=== PATIENT | female | born 1995 | race Caucasian/White ===

== ENCOUNTER 2022-03-04 16:26 | Emergency (ER) | payer BC, SELFPAY ==
[2022-03-04 16:39] VITALS: BP 136/91; PULSE 81; RESP 18; TEMP 36.7; O2SAT 100
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
--- NOTE | 2022-03-04 17:59 | DI.RAD_ITS ---
Exam(s) XR TIB/FIB LT EXAM: XR TIB/FIB LT CLINICAL HISTORY: L leg pain swelling TECHNIQUE: COMPARISON: No exams were available for comparison FINDINGS: Three views were obtained. No bony or soft tissue abnormality seen. IMPRESSION: RADIATION DOSE DELIVERED: Total DLP
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
--- NOTE | 2022-03-06 07:19 | NUR.NOTE ---
Nursing Note: [facility] called asking about outpt order for US. I found the order and refaxed it to [facility]. Kathy Mcgee
== END 2022-03-04 18:14 | disposition home or self-care (01) ==
PROVIDERS: Emergency Provider Emergency Medicine
DX: S80.12XA Contusion of left lower leg, initial encounter (principal); V29.9XXA Motorcycle rider (driver) (passenger) injured in unspecified traffic accident, initial encounter
CPT/HCPCS: 81025; 99283; 73590

== ENCOUNTER 2022-03-07 15:03 | Emergency (ER) | payer BC, SELFPAY ==
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
[2022-03-07 15:14] VITALS: BP 136/88; PULSE 70; RESP 16; TEMP 36.7; O2SAT 100
--- NOTE | 2022-03-07 15:22 | NUR.NOTE ---
Referral [facility] next week. Referral given to Care management to establish care, routine follow up; needs PCP. Kathy Mcgee
== END 2022-03-07 15:33 | disposition home or self-care (01) ==
PROVIDERS: Emergency Provider Emergency Medicine
DX: S80.12XA Contusion of left lower leg, initial encounter (principal); X58.XXXA Exposure to other specified factors, initial encounter

== ENCOUNTER 2022-03-14 13:59 | Outpatient (REF) | payer BC, SELFPAY ==
[2022-03-15 07:13] LABS: Source Nasal/Nares
[2022-03-15 08:06] LABS: COVID-19 PCR POSITIVE (Negative)
== END 2022-03-14 14:00 | disposition home or self-care (01) ==
LOC: LBN 13:59
PROVIDERS: PCP Nurse Practitioner Family; Visit Provider Surgery
DX: Z20.822 Contact with and (suspected) exposure to COVID-19 (principal); Z01.818 Encounter for other preprocedural examination
CPT/HCPCS: 87635

== ENCOUNTER 2022-03-15 10:20 | Day surgery (SDC) | payer BC, SELFPAY ==
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
--- NOTE | 2022-03-15 06:56 | W.PM.DSUDISC ---
Discharge Plan Disposition Patient Disposition: HOME Condition: Good Discharge Details Reason For Visit: LLE HEMATOMA Attending Provider: Regina Birmingham Primary Care Provider: Ophelia Doyle Home Meds and New Rx's Prescriptions: Continued Qsymia 7.5-46 mg capsule, ER multiphase 24 hr 1 cap PO DAILY Allergy Relief (cetirizine) 10 mg capsule 20 mg PO DAILY PRN albuterol sulfate 8.5 GM HFA aerosol inhaler 2 puff Inhalation Q4H PRN Qty: 1 Discharge Instructions Additional Instructions: Activity at Home after surgery: 1. As tolerated. Elevate your leg as much as possible over the next week Diet, Nutrition, & wound healin. As tolerated Pain Medications: 1. Tylenol 650mg every 6 hours as needed and Ibuprofen 600 mg every 6 hours as needed. You may alternate between the 2 medications every 3 hours 2. If a narcotic has been prescribed take as directed only for breakthrough pain For Constipation: 1. Take Milk of Magnesia or MiraLax as needed for constipation Other: 1. You may shower daily. Do not scrub the incisions 2. Do not soak the incisions for 1 week 3. You may alternate ice and heat as needed for pain and swelling Wound Care: 1. The dressing will be changed in the office. If the pad is full of fluid before your appointment call us. If it fills over the weekend then remove the dressing and apply the mepilex dressing we gave you. Please call our office if you develop: 1. Fevers >101.5 2. Nausea or Vomiting 3. Worsening pain 4. Redness and thick discharge from the wounds If after hours please call the Hospital at and ask to speak to the on-call surgeon Referrals: Regina Birmingham MD [ [facility] STAFF PHYSICIAN] - 03/21/22 2:00 pm Activity:: Activity as Tolerated Diet:: As Tolerated Discharge Orders Discharge Orders: Discharge Order (Routine); Ordered 03/15/22 Ordered By: Regina Birmingham Other Ambulatory Orders: COVID-19 PCR Routine ([facility]) (Routine) Timeframe: 10 Day Facility: [facility] - Location: Laboratory Nonpatient Ordered By: Regina Birmingham
[2022-03-15 10:45] VITALS: BP 129/67; PULSE 61; RESP 16; TEMP 36.4; O2SAT 100
[2022-03-15] MEDS: Lactated Ringers 1,000 ML 80 ML IV (10:55)
[2022-03-15] MEDS: Gabapentin 300 MG CAP PO (10:59)
[2022-03-15] MEDS: Celecoxib 200 MG CAP PO (10:59)
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
[2022-03-15] MEDS: Acetaminophen 500 MG TAB 1000 MG PO (11:00)
[2022-03-15 11:06] VITALS: BMI 30.2
[2022-03-15] MEDS: ceFAZolin 2 GM/50 ML BAG IVPB (11:31)
[2022-03-15 11:53] VITALS: BP 120/79; PULSE 62; RESP 16; TEMP 36.4; O2SAT 97
[2022-03-15] MEDS: traMADol 50 MG TAB PO (12:08)
[2022-03-15 12:15] VITALS: BP 122/95; PULSE 65; RESP 15; TEMP 36.4; O2SAT 97
--- NOTE | 2022-03-15 12:38 | W.ANESPOSTOP ---
Postoperative Evaluation Date, Time and Location Date Performed: 03/15/22 Time Performed: 12:34 Patient Location: Day Surgery Unit Vital Signs Most Recent Imported Vital Signs: Most Recent Vital Signs Temp Pulse Resp BP Pulse Ox 36.4 C L 65 15 122/95 H 97 03/15/22 12:15 03/15/22 12:15 03/15/22 12:15 03/15/22 12:15 03/15/22 12:15 Pain Score Most Recent Pain Score: Most Recent Pain Score Pain Level 8 03/15/22 12:15 Assessment Mental Status: Awake (Alert & Oriented to Patient Baseline) Airway and Respiratory Function: Patent airway with normal (patient baseline) respiratory exam Cardiovascular Function: Hemodynamically Stable Hydration Status: Adequately Hydrated Nausea & Vomiting: No Nausea or Vomiting Pain: Pain is tolerable per patient (Pain improved, feels like stinging only now. ) Peripheral Nerve Block: Patient did not receive a nerve block
[2022-03-15 12:48] VITALS: BP 121/84; PULSE 60; RESP 16; TEMP 36.3; O2SAT 100
== END 2022-03-15 10:21 | disposition home or self-care (01) ==
PROVIDERS: PCP Nurse Practitioner Family; Visit Provider Surgery
PROC: (CPT 10140; principal; 2022-03-15 11:30)
DX: S80.12XA Contusion of left lower leg, initial encounter (principal); L03.116 Cellulitis of left lower limb; J45.990 Exercise induced bronchospasm; V86.56XA Driver of dirt bike or motor/cross bike injured in nontraffic accident, initial encounter
CPT/HCPCS: 10140; 81025; 87077; 87635; 87070; 87075; 87186; 87205; J0690; J1100; J1885; J2405

== ENCOUNTER 2023-05-09 13:52 | Outpatient (REF) | payer BC, SELFPAY ==
--- NOTE | 2023-05-09 13:00 | PAPFT_PTH ---
PATIENT: Conrad Mendoza LOC: [facility] U#:[id number] AGE/SX: 27/F ROOM: RE05/09/[address]: Rosa Cuevas : 1995 BED: DIS: 05/09/2023 SPEC #: [id number] RECD: 05/09/23 17:46 STATUS: RESHMA TRIPP #: [id number] NEGRO: 05/09/23 13:[address]: Rosa Cuevas DEPT: [facility] Cytology RECD BY: Fanny Pineda ENTERED: 05/09/23 17:52 SP TYPE: PAPFT OTHR DR: Ophelia Doyle Tissues: 1 - CX/ENDOCX FOR PAP SMEARS Procedures: PAP THIN PREP/[facility] Screening Comments: [id number]
[2023-05-10 13:37] LABS: Chlamydia Result Negative (Negative); GC Result Negative (Negative)
== END 2023-05-09 13:53 | disposition home or self-care (01) ==
LOC: LBN 13:52
PROVIDERS: PCP Nurse Practitioner Family; Visit Provider Obstetrics & Gynecology Gynecology
DX: N90.89 Other specified noninflammatory disorders of vulva and perineum (principal); Z34.01 Encounter for supervision of normal first pregnancy, first trimester
CPT/HCPCS: 87491; 87591; 88142

== ENCOUNTER 2023-05-21 04:34 | Outpatient (CLI) | payer BC, SELFPAY ==
[2023-05-21 15:37] LABS: Panorama Kit Sent via Fed Ex
[2023-05-21 15:44] LABS: Abs Immature Grans 0.04 10^3/uL (0.0-0.06); Absolute Basophil Count 0.03 10^3/uL (0.0-0.2); Absolute Eosinophil Count 0.07 10^3/uL (0.0-0.7); Absolute Lymphocyte Count 1.88 10^3/uL (1.2-3.4); Absolute Monocyte Count 0.72 10^3/uL (0.1-0.8); Absolute Neutrophil Count 6.95 10^3/uL (1.2-6.7); Basophils % 0.3; Eosinophils % 0.7; Glucose,1 Hr (Glucola) 77 mg/dL (80-140); HCT 40.3 % (36.0-46.0); HGB 13.2 g/dL (11.2-15.7); Immature Grans % 0.4; Lymphocytes % 19.4; MCH 29.4 pg (27.0-33.0); MCHC 32.8 % (32.0-36.0); MCV 90 fL (80-95); MPV 9.4 fL (8.0-11.0); Monocytes % 7.4; Neutrophils % 71.8; Platelet Count 285 10^3/uL (130-400); RBC 4.49 10^6/uL (3.93-5.22); RDW 12.4 % (11.7-14.6); RDW-SD 40.6 fL; WBC 9.69 10^3/uL (4.4-10.8)
[2023-05-22 09:18] LABS: Hepatitis B Surface Ag Negative (Negative)
[2023-05-22 09:49] LABS: Hepatitis C Ab w Rflx HCV PCR Negative (Negative)
[2023-05-22 10:00] LABS: HIV-1/2 Ag & Ab Screen Negative (Negative)
[2023-05-22 10:56] LABS: Varicella IgG Antibody Positive (See Note)
[2023-05-22 11:01] LABS: Rubella IgG Ab (UVM) Positive (See Note)
[2023-05-23 15:18] LABS: Syphilis IgG w/Reflex Nonreactive (Nonreactive)
[2023-05-23 15:54] LABS: Specimen WB Whole Blood
[2023-06-02 14:34] LABS: Result Summary NEGATIVE; Specimen WB Whole Blood
== END 2023-05-21 04:35 | disposition home or self-care (01) ==
LOC: LBO 04:37
PROVIDERS: Advanced Practice Midwife; PCP Nurse Practitioner Family; Visit Provider Advanced Practice Midwife
DX: Z34.91 Encounter for supervision of normal pregnancy, unspecified, first trimester (principal); Z3A.12 12 weeks gestation of pregnancy; Z36.89 Encounter for other specified antenatal screening
CPT/HCPCS: 36415; 81220; 81222; 81329; 82950; 86787; 86803; 86850; 86900; 86901; 87340; 87389; 85025; 86762; 86780

== ENCOUNTER 2023-05-21 13:35 | Outpatient (REF) | payer BC, SELFPAY ==
[2023-05-21 15:44] LABS: *AMPHETAMINES SCREEN URINE Negative (Negative); *BARBITURATES SCREEN URINE Negative (Negative); *BENZODIAZEPINES SCREEN URINE Negative (Negative); Cannabinoids THC Negative (Negative); Cocaine Screen,Urine Negative (Negative); METHADONE URINE SCREEN Negative (Negative); OPIATES URINE SCREEN Negative (Negative)
[2023-05-21 15:45] LABS: Tricyclic Antidepressants Negative (Negative)
[2023-05-25 22:20] LABS: Buprenorphine Negative ng/mL (Cutoff: 5.0); Norbuprenorphine Negative ng/mL (Cutoff: 2.5)
== END 2023-05-21 13:36 | disposition home or self-care (01) ==
LOC: LBN 13:35
PROVIDERS: PCP Nurse Practitioner Family; Visit Provider Advanced Practice Midwife
DX: Z34.91 Encounter for supervision of normal pregnancy, unspecified, first trimester (principal); Z3A.12 12 weeks gestation of pregnancy
CPT/HCPCS: 80307; 80348; 87086

== ENCOUNTER 2023-09-10 03:59 | Outpatient (CLI) | payer BC, MEDICAID, SELFPAY ==
[2023-09-10 10:07] LABS: HCT 36.6 % (36.0-46.0); HGB 12.1 g/dL (11.2-15.7); MCH 29.8 pg (27.0-33.0); MCHC 33.1 % (32.0-36.0); MCV 90 fL (80-95); MPV 9.6 fL (8.0-11.0); Platelet Count 300 10^3/uL (130-400); RBC 4.06 10^6/uL (3.93-5.22); RDW 12.8 % (11.7-14.6); WBC 10.34 10^3/uL (4.4-10.8)
[2023-09-10 10:27] LABS: Glucose,1 Hr (Glucola) 104 mg/dL (80-140)
== END 2023-09-10 04:00 | disposition home or self-care (01) ==
LOC: LBO 03:59
PROVIDERS: PCP Nurse Practitioner Family; Visit Provider Advanced Practice Midwife
DX: Z34.93 Encounter for supervision of normal pregnancy, unspecified, third trimester (principal)
CPT/HCPCS: 36415; 82950; 85027; 86850

== ENCOUNTER → 2023-10-23 00:42 | Outpatient (CLI) | payer BC, MEDICAID, SELFPAY ==
--- NOTE | 2023-10-23 07:00 | DI.US_ITS ---
Exam(s) US OB NATI WEIGHT EXAM: US OB NATI WEIGHT CLINICAL HISTORY: , FUNDAL HT HIGH FOR DATES, Z34.90. TECHNIQUE: Transabdominal obstetrical ultrasound performed. COMPARISON: US POCUS EXAM from 04/30/2023 US US OB 2-3 TRIMESTER from 07/11/2023 FINDINGS:: Number of fetuses: One. position: Vertex. Placental location: Posterior. No evidence of previa. BIOMETRIC DATA: BPD: 86mm = 34+4 weeks HC: 312mm = 34+ 6 weeks AC: 323mm = 36+ 1 weeks FL: 7 mm = 35+5 weeks EFW: 2759 Gms = 82% Composite Age: 35+2 weeks RIGOBERTO: 25 November 2023 Heart Rate: 148BPM Amniotic fluid index: 8.5 cm. Amount of fluid is visually within normal limits. IMPRESSION: size and weight are within the expected range. DATA REPOSITORY:
== END ==
PROVIDERS: PCP Nurse Practitioner Family; Visit Provider Advanced Practice Midwife
DX: Z34.93 Encounter for supervision of normal pregnancy, unspecified, third trimester (principal)
CPT/HCPCS: 76816

== ENCOUNTER 2023-11-02 07:17 | Inpatient (IN) | payer BC, MEDICAID, SELFPAY ==
[2023-11-02] VITALS (14 sets, daily range): BP systolic 117–144; BP diastolic 56–98; PULSE 66–85; RESP 12–18; TEMP 36.7–37.2; O2SAT 98
[2023-11-02 06:50] LABS: ROM Plus Positive
--- NOTE | 2023-11-02 07:20 | W.PM.OBHPL1 ---
Date of service: 11/02/23 Time of Service: 07:20 Assessment and Plan Assessment and plan (1) Gestational hypertension: Status: Acute Assessment and plan: preeclampsia labs. IV started for GBS prophylaxis (2) labor: Status: Acute Assessment and plan: Admit to the Center. Discussed augmentation of labor if indicated. Anticipate . GBS swab take and GBS prophylaxis. OB-HPI Labor/Delivery History of Present Illness Reason for Visit: NSTpreterm labor Chief Complaint: Uterine Contractions; Suspected Rupture of Membranes (contractions) , Associated Signs and Symptoms of Suspected ROM: scant bloody show. RIGOBERTO Calculator Estimated Delivery Date Method Current WG Current Estimate 12/01/23 LMP (Certain) 35w 6d Other Estimates 11/29/23 Ultrasound #1 36w 1d Comments: Conrad called at 0530 and reported that she was leaking clear fluid. She began having mild contractions upon arrival. History of Present Expected Delivery Route/Plan - CNM FOB/not-byfrnd - Sanket Oquendo (first child) Doesn't want to know gender until delivery, will circ if male Specific Issues/Plan 1. Dairy free diet d/t protein sensitivity (itchiness, GI distress) 2. BMI 33, early glucola=77; @ 28 wk = 104 3. Desires cfDNA screen without sex ID (low risk x5), and CF-neg, SMA -neg 4. Advised low dose ASA d/t nulliparity and BMI 5. Pierced nipples, accepts LC consult at 36 wks (pt to follow-up) __ 6. Rh neg, RhoGam @ 28 wks, FOB is A neg (per records) so pt declines RhoGam 7. Increased preeclampsia risk - ASA at 12 weeks-taking PFSH All Active Problems (Updated 11/02/23 @ 07:22 by Arminda Forbes CNM) labor (Acute) Gestational hypertension (Acute) Fundal height high for dates (Acute) Rh negative state in antepartum period (Acute) History of asthma (Acute) Class 1 obesity with body mass index (BMI) of 33.0 to 33.9 in adult (Acute) (Acute) Hx of migraines (Acute) Medical History (Updated 11/02/23 @ 07:22 by Arminda Forbes CNM) Encounter for supervision of normal first , first trimester Labial lesion Missed menses Allergy to dairy product GI upset History of COVID-19 03/19 Concussion (11/18/13) Routine medical exam (02/26/14) Infectious mononucleosis (05/02/12) 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 History of varicella (01/07/98) Bronchiolitis admitted Concussion (08/31/11) reports 2 lifetime Surgical History (Updated 05/21/23 @ 14:10 by Swati Roblero) S/P evacuation of hematoma left garcias, in 2021 Tooth extraction 4 wisdom teeth extraction Family History Grandfather No problems noted. Other Diabetes family history Heart disease family history Father Heart disease Hypertension Hypertensive disorder, systemic arterial Paternal Aunt No problems noted. Paternal Grandfather Heart disease Hypertension Hypertensive disorder, systemic arterial Hearing loss Maternal Grandfather No problems noted. Maternal Grandmother Personal history of malignant neoplasm Paternal Grandmother Personal history of malignant neoplasm Social History (Updated 05/09/23 @ 13:23 by Rosa Cuevas MD) Smoking/Tobacco Use Status: Never Smoking risk assessment performed?: Yes Alcohol Intake: current Alcohol Intake frequency: a few times a month Drug use: Never Substance use type: does not use Household members: family and other Details: moved in with parents 1 yr ago after relationship ended Education Level: high school current occupation: [employer]. Sexually active: No Do you feel safe at home: Yes Do you feel safe in your relationship?: Yes History History 1 Para 0 Hx # Term Pregnancies 0 Multiple births 0 Hx # Pregnancies 0 Ectopic pregnancies 0 AB induced 0 Hx Number of Living Children 0 AB spontaneous 0 Meds Allergies and Home Medications Allergies Allergy/AdvReac Type Severity Reaction Status Date / Time tree nut [Tree Nut] Allergy Intermediate tongue Verified 10/23/23 09:21 throat itching dairy Allergy Other (See Uncoded 10/23/23 09:21 Comment) Home Medications Medication Instructions Recorded Confirmed Type albuterol sulfate 90 mcg/actuation 2 puff inhalation Q4H PRN ##1 06/11/15 10/23/23 History aerosol inhaler cetirizine 10 mg capsule (Allergy 20 mg PO DAILY PRN 03/14/22 10/23/23 History Relief (cetirizine)) vit no.95-ferrous 1 tab PO DAILY 04/30/23 10/23/23 History fumarate 28 mg-folic acid 800 mcg tablet aspirin 81 mg tablet,delayed 81 mg PO DAILY #90 tabs 05/21/23 10/23/23 Rx release epinephrine 0.3 mg/0.3 mL 0.3 mg (0.3 mL) IM ONCE #2 ea 10/08/23 10/23/23 Rx injection, auto-injector Exam Physical Exam Vital signs: Temp Pulse BP Pulse Ox 98.9 F 75 144/98 H 98 11/02/23 06:15 11/02/23 06:41 11/02/23 06:41 11/02/23 06:17 Vital Signs Reviewed: Yes Detailed Labor and Delivery Exam Dilation: 0 Effacement (%): 25 station: -2 Cervix position: mid Consistency: medium Kay Score: Cervical Points Exam 0 1 2 3 Dilation Closed 1-2cm 3-4 cm 5-6cm Effacement 0-30% 40-50% 60-70% 80% Consistency Firm Medium Soft Station -3 -2 -1,0 +1,+2 Position Posterior Mid Anterior Rupture Method: Spontaneous Amniotic Fluid: Clear Pooling: Positive ROM Plus: Positive Monitor Mode: External Contraction Frequency(min): every 4-5 Contraction Intensity: Mild/Moderate Fetus A Heart Rate Baseline: 140 Monitor Accelerations: 15 X 15 Monitor Decelerations: None Variability: Moderate (6-25 BPM) Categories: Category I Respiratory Exam Respiratory Exam: Normal Cardiovascular Exam Cardiovascular Exam: Normal Abdominal Exam Abdominal Exam: Normal Exam Exam: Normal Extremities Exam Extremities Exam: Abnormal (1+ edema) Skin Exam Skin Exam: Normal Psychiatric Exam Psychiatric Exam: Normal Risk Assessment Risk for Shoulder Dystocia Historical/Initial OB: POSITIVE FOR: Pre- BMI>30; NEGATIVE FOR: Pelvic Abnormality, Previous Shoulder Dystocia or Previous Macrosomia 36 Weeks: POSITIVE FOR: Maternal Weight Gain>40lbs; NEGATIVE FOR: Current Gestational DM or EFW>4500gms 40 Weeks: POSTIVE FOR: Maternal Weight Gain >40lb; NEGATIVE FOR: EFW> 4500 gms or Post Dates Increased Risk?: Yes Risk for Pre-Eclampsia Daily Dose ASA Indicated: Yes Date Initiated/Initials: start at 12 wks. JK Yes, if one or more: NEGATIVE FOR: Hx Pre-E/Gest HTN, Chronic HTN, Multiple Gestation, Pre-gestational DM, Renal Disease, Systemic Lupus or APA Syndrome Yes, if 2 or more: POSITIVE FOR: Nulliparity and BMI>30; NEGATIVE FOR: Age>= 35 yrs, >10yr btwn pregnancies, ethinicty, Mother/Sister w/ Pre-E or Previous IUGR Risk for Post- Hemorrhage Initial: NEGATIVE FOR: Multiple Gestation, Previous PPH, Known Clotting Deficiency, Grand Multiparity or Anticoagulation 36 Weeks: POSITIVE FOR: Gestational HTN or Pre-E; NEGATIVE FOR: Anemia, hgb<10, Low platelets(thrombocytopenia), Polyhydraminios or EFW>4500gms 40 Weeks: POSITIVE FOR: Gestation HTN or Pre-E; NEGATIVE FOR: Anemia, hgb<10, Low platelets (thrombocytopenia), Polyhydraminios or EFW>4500gms At Risk?: Yes Risks Reviewed Risks Reviewed Upon Admission: Yes
[2023-11-02 07:43] LABS: HCT 41.2 % (36.0-46.0); HGB 13.3 g/dL (11.2-15.7); MCH 28.7 pg (27.0-33.0); MCHC 32.3 % (32.0-36.0); MCV 89 fL (80-95); MPV 10.2 fL (8.0-11.0); Platelet Count 300 10^3/uL (130-400); RBC 4.63 10^6/uL (3.93-5.22); RDW 13.6 % (11.7-14.6); RDW-SD 43.9 fL; WBC 10.23 10^3/uL (4.4-10.8)
[2023-11-02 08:10] LABS: ALT 17 U/L (14-59); AST 17 U/L (15-37); Albumin 2.4 g/dL (3.4-5.0); Alkaline Phosphatase 150 U/L (46-116); BUN 17 mg/dL (7-18); Bilirubin, Total 0.3 mg/dL (0.2-1.0); CREATININE 0.9 mg/dL (0.55-1.02); Chloride 104 mmol/L (98-107); Glucose 89 mg/dL (74-106); Potassium 4.2 mmol/L (3.5-5.1); Sodium 140 mmol/L (136-145); Total Protein 6.9 g/dL (6.4-8.2); Uric Acid 6.2 mg/dL (2.6-6.0)
[2023-11-02] MEDS: Lactated Ringers 1,000 ML 125 ML IV (08:45)
[2023-11-02] MEDS: Normal Saline Flush 10 ML SYR IVP (09:10)
[2023-11-02] MEDS: Penicillin G POT. 5,000,000 UNITS in Normal Saline 100 ML 200 UNITS IVPB (09:11)
[2023-11-02] MEDS: Acetaminophen 325 MG TAB 650 MG PO ×3 (09:48→19:21)
--- NOTE | 2023-11-02 12:11 | W.PM.OBNL1 ---
Date of service: 11/02/23 Time of Service: 12:11 Pelvic Exam Comments: SVE deferred d/t lack of labor Contractions Monitor Mode: Palpation Contraction Frequency(min): irregular and rare Intensity: Mild Fetus A Monitor: Doppler Heart Rate Baseline: 140 FHR Rhythm: Regular Characteristics: Normal Amniotic Membrane Status: Ruptured Rupture Method: Spontaneous Amniotic Fluid: Clear Date of Membrane Rupture: 11/02/23 Time of Membrane Rupture: 05:00 Assessment and Plan Assessment and plan (1) premature rupture of membranes, antepartum: Status: Acute Assessment and plan: A: G1 @ 35+6 wks, PPROM 0500 today Category 1 tracing, GBS unknown Low risk for SD and PPH Rh negative and received RhoGam P: Pt prefers to await spontaneous labor at this time Monitor for progression & discuss options for IOL this afternoon GBS prophylaxis in progress Comfort measures as pt desires, encourage activity & PO hydration Subjective Interval history since last seen: Pt states she is having some strong contractions now and then, otherwise very comfortable. Results Hemoglobin/Hematocrit: Hgb 13.3 g/dL (11.2-15.7) 11/02/23 07:34 Hct 41.2 % (36.0-46.0) 11/02/23 07:34 Abnormal Lab Findings: Abnormal Labs 11/02/23 07:34 Uric Acid 6.2 H Alkaline Phosphatase 150 H Albumin 2.4 L
[2023-11-02] MEDS: Penicillin G POT. 3,000,000 UNITS in Normal Saline 50 ML 100 UNITS IVPB ×3 (13:16→20:50)
--- NOTE | 2023-11-02 15:53 | PGE_ITS ---
Date of service: 11/02/23 Time of Service: 15:53 Informed Consent Informed Consent: Induction of Labor (Will start with misoprostel for cervical ripening, discussed pitocin infusion as next step.) and Risk,Benefits,Alternatives Discussed Pelvic Exam Dilation: 0.5 Effacement (%): 50 station: -2 Cervix Position: mid Consistency: medium Contractions Monitor Mode: External Contraction Frequency(min): irreg Intensity: Mild Fetus A Monitor: External (US) Heart Rate Baseline: 135 Variability: Moderate (6-25 BPM) Categories: Category I Accelerations: Present Decelerations: None Amniotic Membrane Status: Ruptured Assessment and Plan Assessment and plan (1) premature rupture of membranes, antepartum: Status: Acute Assessment and plan: A: No labor, pt comfortable, category 1 tracing PPROM x11 hrs. afrebile Discussed IOL, pt in agreement GBS prophylaxis in progress P: Options reviewed, pt prefers starting with cervical ripening, Will give misoprostel 50 mcg PO x1 BP stable, urine prot/creat sent (early childhood assistant CBC/CMP nml) Objective Vital Signs Reviewed: Yes Objective Narrative Objective Narrative: BP's 120-130's over 80's. CMP and CBC this morning WNL Straight cath for urine, prot/creat pending OLSON addressed with tylenol and sinus medication Subjective Patient Reports: No new Complaints Interval history since last seen: Has had a headache all day, feels her sinuses are stuffed, given tylenol and will take her allergy medication.
[2023-11-02 16:01] LABS: COMMENT (LAB VIEW ONLY) 91.23 mg/dL; Prot/Crea Ur Ratio 0.13
[2023-11-02] MEDS: miSOPROStol 50 MCG TAB PO (16:19)
--- NOTE | 2023-11-02 22:03 | W.PM.OBNL1 ---
Date of service: 11/02/23 Time of Service: 22:03 Informed Consent Informed Consent: Induction of Labor (Will start with misoprostel for cervical ripening, discussed pitocin infusion as next step.) and Risk,Benefits,Alternatives Discussed Pelvic Exam Dilation: 1 Effacement (%): 70 station: -2 Cervix Position: mid Consistency: medium BISHOPS Score(Cervical Ripeness Score): 5 Fetus A Monitor: External (US) Heart Rate Baseline: 140 Variability: Moderate (6-25 BPM) Categories: Category I Accelerations: Present Decelerations: None Amniotic Membrane Status: Ruptured Assessment and Plan Assessment and plan (1) premature rupture of membranes, antepartum: Status: Acute Assessment and plan: A: G1, PPROM @ 35+6 wks; latent phase, category 1 tracing Cervical ripening with misoprostel Kay score advanced to 5-6 GBS prophylaxis is adequate (unknown status) BP has been normotensive, urine pr/cr was nml, pt afebrile P: Pt feeling some uncomfortable contractions Will hold second misoprostel dose Discussed options with pt, she prefers to sleep before further medication Vistaril for sleep now, resume induction efforts if no onset of labor Anticipating Objective Vital Signs Reviewed: Yes Subjective Interval history since last seen: Feeling somewhat painful contractions every 3 minutes or so, also very tired/sleepy. Tolerating oral intake well. WOuld like to sleep before continuing induction efforts.
[2023-11-02] MEDS: hydrOXYzine PAMOATE 25 MG CAP 100 MG PO (22:11)
[2023-11-03] VITALS (256 sets, daily range): BP systolic 94–157; BP diastolic 53–93; PULSE 69–136; RESP 16–20; TEMP 36.6–37.2; O2SAT 90–100; BMI 41.6
[2023-11-03] MEDS: Penicillin G POT. 3,000,000 UNITS in Normal Saline 50 ML 100 UNITS IVPB ×5 (01:02→17:26)
--- NOTE | 2023-11-03 07:58 | W.PM.OBNL1 ---
Date of service: 11/03/23 Time of Service: 07:59 Informed Consent Informed Consent: Induction of Labor (pitocin induction today) and Risk,Benefits,Alternatives Discussed Pelvic Exam Comments: deferred Contractions Monitor Mode: External Contraction Frequency(min): q3-5 Intensity: Mild Fetus A Monitor: External (US) Heart Rate Baseline: 140 Variability: Moderate (6-25 BPM) Categories: Category I Accelerations: Present Decelerations: None Amniotic Membrane Status: Ruptured Assessment and Plan Assessment and plan (1) premature rupture of membranes, antepartum: Status: Acute Assessment and plan: A: PPROM x27 hrs, afebrile Stable BP, category 1 tracing P: Will begin pitocin induction after breakfast Reviewed options for pain management w/pt Anticipate Dr. Mckeon consulting as indicated Objective Vital Signs Reviewed: Yes Notable Details: BP generally 120's over 80's Subjective Interval history since last seen: Restless for most the night but was able to sleep for a few hours, headache that she thinks is a migraine is better this morning, contractions are irregular but some of them are painful in the lower abd area. Is hungry for breakfast, and agreeablel to beginning pitocin.
[2023-11-03] MEDS: Acetaminophen 325 MG TAB 650 MG PO ×2 (08:01→22:47)
[2023-11-03] MEDS: Oxytocin/Normal Saline 30 UNIT/500 ML BAG 2 UNITS IV (08:48)
[2023-11-03] MEDS: Normal Saline Flush 10 ML SYR IVP (08:49)
[2023-11-03] MEDS: Lactated Ringers 1,000 ML 125 ML IV ×2 (08:49→13:16)
--- NOTE | 2023-11-03 13:49 | W.PM.OBNL1 ---
Date of service: 11/03/23 Time of Service: 13:49 Informed Consent Informed Consent: Induction of Labor (pitocin induction today) and Risk,Benefits,Alternatives Discussed Pelvic Exam Dilation: 2 Effacement (%): 90 station: -1 Cervix Position: mid Contractions Monitor Mode: External (NOVI) Contraction Frequency(min): q3-5 Intensity: Moderate Fetus A Monitor: External (US) (NOVI) Heart Rate Baseline: 140 Variability: Moderate (6-25 BPM) Categories: Category I Accelerations: Present Decelerations: Early Assessment and Plan Assessment and plan (1) premature rupture of membranes, antepartum: Status: Acute Assessment and plan: A: IOL for PPROM in progress, progressing through latent phase Pitocin @ 16 mu/min Category 1 tracing Need for pain management, using nitrous P: Pt accepts IV Nubain dose, will give 10 mg Continue GBS PCN prophylaxis q4 hrs Continue pitocin infusion per guidelines Pt aware she may request regional anesthesia Anticipate Objective Vital Signs Reviewed: Yes Notable Details: BP maintaining baseline 120's over 80's Subjective Interval history since last seen: Pt feeling very tense, difficult to move, lower back is in a lot of pain, contractions hurt, low jones pelvic pressure. Using nitrous, has been trying different positions, requests IV analgesia.
--- NOTE | 2023-11-03 17:24 | W.PM.OBNL1 ---
Date of service: 11/03/23 Time of Service: 17:24 Informed Consent Informed Consent: Regional Anesthesia and Risk,Benefits,Alternatives Discussed Pelvic Exam Dilation: 5 Effacement (%): 100 station: -1 Position: MALGORZATA Cervix Position: mid Consistency: soft Contractions Monitor Mode: External (NOVI) Contraction Frequency(min): q2-3 Intensity: Moderate/Strong Fetus A Monitor: External (US) (NOVI) Heart Rate Baseline: 140 Variability: Moderate (6-25 BPM) Categories: Category I Accelerations: Present Decelerations: Early Amniotic Membrane Status: Ruptured Assessment and Plan Assessment and plan (1) premature rupture of membranes, antepartum: Status: Acute Assessment and plan: A: PPROM x36 hrs, PCN prophylaxis adequate Pitocin at 20 mu/min, progressed to 5/100% vtx -1 Category 1 tracing P: Pt requesting epidural anesthesia Dr. Mike Foley notified of current status Anticipate (2) Encounter for induction of labor: Status: Acute Objective Vital Signs Reviewed: Yes Objective Narrative Objective Narrative: Pt resting in bed, turning from side to side Using pnut ball and nitrous BP 110's over 70's, afebrile Subjective Interval history since last seen: Nubaine worked well but now pain is beginning to increase again and is feeling pelvic pressure too, discussed Fentanyl analgesia versus epidural, pt prefers epidural anesthesia now.
--- NOTE | 2023-11-03 17:43 | ANES.PREOP_ITS ---
General Info Date of Service Date Performed: 11/03/23 Height: 5 ft 7 in Weight: 120.656 kg Body Mass Index (BMI): 41.6 Surgical Procedure: Labor epidural Meds Allergies and Home Medications Allergies Allergy/AdvReac Type Severity Reaction Status Date / Time tree nut [Tree Nut] Allergy Intermediate tongue Verified 10/23/23 09:21 throat itching dairy Allergy Other (See Uncoded 10/23/23 09:21 Comment) Home Medication Medication Instructions Recorded albuterol sulfate 90 mcg/actuation 2 puff inhalation Q4H PRN ##1 06/11/15 aerosol inhaler cetirizine 10 mg capsule (Allergy 20 mg PO DAILY PRN 03/14/22 Relief (cetirizine)) vit no.95-ferrous 1 tab PO DAILY 04/30/23 fumarate 28 mg-folic acid 800 mcg tablet aspirin 81 mg tablet,delayed 81 mg PO DAILY #90 tabs 05/21/23 release epinephrine 0.3 mg/0.3 mL 0.3 mg (0.3 mL) IM ONCE #2 ea 10/08/23 injection, auto-injector Current Visit Medications: Current Medications Generic Name Dose Route Start Last Admin Trade Name Freq PRN Reason Stop Dose Admin Acetaminophen 650 mg 11/02/23 09:23 11/03/23 08:01 Acetaminophen 325 Mg Tab PO 650 mg Q6H PRN PRN Administration Fentanyl/Ropivacaine 200 ml 11/03/23 17:30 Fentanyl/Ropivacaine 2 Mcg/Ml And 0.1% 200 Ml [place]ette EP DIRECTED GEETHA Penicillin G Potassium 3,000, 50 mls @ 100 mls/hr 11/02/23 13:00 11/03/23 17:26 000 units/ Sodium Chloride IVPB 100 mls/hr Q4H GEETHA Administration Ringer's Solution 1,000 mls @ 125 mls/hr 11/03/23 08:00 11/03/23 08:49 IV 125 mls/hr INFUSION GEETHA Administration Oxytocin/Sodium Chloride 30 unit in 500 mls @ 2 mls/hr 11/03/23 08:00 11/03/23 17:05 Pitocin/Normal Saline IV 20 milliunits/min INFUSION GEETHA 20 mls/hr Titration Protocol 2 MILLIUNITS/MIN Ringer's Solution 500 mls @ 500 mls/hr 11/03/23 17:23 IV 11/03/23 18:22 BOLUS ONE IV Miscellaneous Supplies 1 each 11/02/23 07:30 Iv Access IV DIRECTED GEETHA Sodium Chloride 0 ml 11/02/23 07:19 11/03/23 08:49 Normal Saline Flush 10 Ml Syr IVP 10 ml PRN PRN Administration Sodium Chloride 0 ml 11/02/23 08:30 11/03/23 09:23 Normal Saline Flush 10 Ml Syr IVP Not Given BID GEETHA Sodium Chloride 0 ml 11/02/23 07:19 Normal Saline 10 Ml Vial IJ DIRECTED PRN PFSH Active Problems Active Problems: Problem Status Onset Code Encounter for induction of labor Z34.90 premature rupture of membranes, antepartum O42.919 labor O60.00 Fundal height high for dates Z34.90 Rh negative state in antepartum period O26.899, Z67.91 History of asthma Z87.09 Class 1 obesity with body mass index (BMI) of 33.0 to 33.9 in adult E66.9, Z68.33 Z34.90 Hx of migraines Z86.69 Medical History Medical History (Updated 11/03/23 @ 17:28 by Swati Roblero) Encounter for supervision of normal first , first trimester Labial lesion Missed menses Allergy to dairy product GI upset History of COVID-19 03/19 Concussion (11/18/13) Routine medical exam (02/26/14) Infectious mononucleosis (05/02/12) 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 History of varicella (01/07/98) Bronchiolitis admitted Concussion (08/31/11) reports 2 lifetime Surgical History Surgical History (Updated 05/21/23 @ 14:10 by Swati Roblero) S/P evacuation of hematoma left garcias, in 2021 Tooth extraction 4 wisdom teeth extraction Tobacco Smoking/Tobacco Use Status: Never Alcohol Alcohol Intake: current Alcohol intake frequency: a few times a month Substance Use Substance use: Never Substance use type: does not use Prental History History 2 1 Para 0 Hx # Term Pregnancies 0 Multiple births 0 Hx # Pregnancies 0 Ectopic pregnancies 0 AB induced 0 Hx Number of Living Children 0 AB spontaneous 0 Vital Signs and Lab Results Vital Signs Most Recent Vital Signs in EMR: Most Recent Vital Signs Temp Pulse Resp BP Pulse Ox 36.7 C 87 16 110/53 L 97 11/03/23 17:30 11/03/23 17:39 11/03/23 13:03 11/03/23 17:30 11/03/23 09:28 Lab Results 11/02/23 07:34 11/02/23 07:34 Blood Type / Crossmatch: 2 Patient ABO/Rh A Negative 11/02/23 Antibody Screen NEGATIVE 11/02/23 Complete Blood Count: 2 White Blood Count 10.23 10^3/uL (4.4-10.8) 11/02/23 07:34 Red Blood Count 4.63 10^6/uL (3.93-5.22) 11/02/23 07:34 Hemoglobin 13.3 g/dL (11.2-15.7) 11/02/23 07:34 Hematocrit 41.2 % (36.0-46.0) 11/02/23 07:34 Platelet Count 300 10^3/uL (130-400) 11/02/23 07:34 Complete Metabolic Panel: 2 Sodium 140 mmol/L (136-145) 11/02/23 07:34 Potassium 4.2 mmol/L (3.5-5.1) 11/02/23 07:34 Chloride 104 mmol/L (98-107) 11/02/23 07:34 Carbon Dioxide 26.0 mmol/L (21.0-32.0) 11/02/23 07:34 BUN 17 mg/dL (7-18) 11/02/23 07:34 Creatinine 0.9 mg/dL (0.55-1.02) 11/02/23 07:34 Est GFR (CKD-EPI 2020) 89.30 (mL/min/1.73m2) 11/02/23 07:34 Calcium 9.0 mg/dL (8.5-10.1) 11/02/23 07:34 Albumin 2.4 g/dL (3.4-5.0) L 11/02/23 07:34 Glucose 89 mg/dL (74-106) 11/02/23 07:34 Liver Function Panel: 2 Alanine Aminotransferase (ALT/SGPT) 17 U/L (14-59) 11/02/23 07: 34 Aspartate Amino Transf (AST/SGOT) 17 U/L (15-37) 11/02/23 07:34 Coagulation Panel: 2 No Data to Display Cardiac Panel: 2 No Data to Display Arterial Blood Gas: 2 No Data to Display Venous Blood Gas: 2 No Data to Display Pancreas Panel: 2 No Data to Display Thyroid Panel: 2 No Data to Display Infectious Disease: 2 No Data to Display Blood Cultures: 2 No Data to Display Toxicology Panel: 2 No Data to Display Panel: 2 No Data to Display Anesthesia Assessment and Plan Anesthesia History Personal History: No History of Anesthesia Complications Family History: No Family History of Anesthesia Complications Exercise Tolerance Exercise Tolerance: Metabolic Equivalents>4 Pertinent Negatives Pertinent Negatives: No Major Cardiovascular Symptoms or Complaints, No Major Pulmonary Symptoms or Complaints and No History of CVA/TIA Cardiac & Pulmonary Exam Cardiac Exam: Normal S1/S2 Heart Sounds Pulmonary Exam: Clear Bilateral Breath Sounds Implantable Cardiac Device Does patient have a Pacemaker or an ICD?: No Airway Exam Known Difficult Airway: No Mallampati Class: 2 Mouth Opening: Normal (> 3cm) Thyromental Distance: Greater than 3 cm Neck Range of Motion: Full ROM Neck Circumference: Normal Teeth Condition: Normal Dentition ASA Classification ASA Score: ASA 3 Emergency Case?: No NPO Status NPO Status: Full Stomach ( ) Status Status: Confirmed Anesthesia Plan Resuscitation Status: Full Code Anesthesia Technique: Labor Epidural Airway Planned: Natural Airway Monitors Used: Standard Monitors
[2023-11-03] MEDS: FentaNYL/ROPIvacaine 2 mcg/ml and 0.1% 200 ML CADD Cassette EP (18:00)
--- NOTE | 2023-11-03 18:30 | W.ANESNEU ---
Epidural/Spinal Catheter Date Performed: 11/03/23 Procedure Start: 18:01 Procedure Stop: 18:31 Requesting Provider: Swati Roblero Procedure Location: Obstetrics Reason Performed: Labor Epidural Standard Monitors Applied: Blood Pressure, SpO2 and See EMR for corresponding vital signs Patient Position: Sitting Sedation Given (Indicate Dose Given): No Sedation given Patient Mental Status: Awake Sterility: Hand Hygiene, Surgical Cap, Surgical Mask, Sterile Gloves, Sterile Drape/Sheet and Chlorhexidine Procedure Location: L3-L4 Interspace Epidural Needle: Tuohy 18 Gauge Needle Length: 3.5 Inch Needle Approach: Midline Epidural Procedure: Skin Prepped, Sterile Drape Placed, 1% Lidocaine to skin and subcutaneous tissue with 25G needle, Tuohy Needle placed, GINETTE to Saline Used, Epidural Catheter Placed, Negative Heme, Negative CSF Flow and Tuohy Needle Removed Catheter Placed?: Catheter Placed Test Dose (Indicate Dose Given): 3ml 1.5% Lidocaine with 1:200K Epinephrine Given and Negative Test Dose Loss of Resistance Depth (cm): 8 Catheter depth at skin (cm): 15 Dressing: Sorbaview Dressing Placed and Mastisol Used Epidural Provider Bolus (Indicate Dose Given): Total bolus dose given in 3-5 ml divided doses and Total Bupivacaine 0.25% Given (ml) Dose:: 6 ml Additives (Indicate Dose Given ): Fentanyl PF Dose:: 100 mcg Infusion Medication: Medication Infusion Began Medication Infusion: Ropivacaine 0.1% with Fentanyl 2mcg/ml (see MAR) Maintenance Infusion Rate (ml/hour): 10 PCEA Bolus Dose (ml): 5 Post Procedure Pain score (0-10): 0 Block Level: N/A Paresthesia: None Ultrasound: Not Used Number of Attempts (See previous attempts in note section): 1 Procedure Tolerated: No Complications and Patient tolerated well Procedure Outcome: Successful Performed By: Heidi Noonan
[2023-11-03] MEDS: fentaNYL 100 MCG/2 ML VIAL EP (18:42)
--- NOTE | 2023-11-03 20:18 | W.PM.OBNL1 ---
Date of service: 11/03/23 Time of Service: 20:00 Informed Consent Informed Consent: Induction of Labor and Risk,Benefits,Alternatives Discussed Pelvic Exam Dilation: 9 Effacement (%): 100 station: 0 Contractions Contraction Frequency(min): q2-3 Intensity: Moderate/Strong Fetus A Monitor: External (US) Heart Rate Baseline: 145 Variability: Moderate (6-25 BPM) Categories: Category I Accelerations: Present Decelerations: Early Amniotic Membrane Status: Ruptured Assessment and Plan Assessment and plan (1) Encounter for induction of labor: Status: Acute (2) premature rupture of membranes, antepartum: Status: Acute Assessment and plan: A: prolonged PPROM, IOL in progress Pitocin at 26 mu/min; category 1 tracing Approaching 2nd stage @ 9/100% 0 station P: Discussed ATB coverage with Dr. Mckeon Will give Ancef 2 gms IVPB at next dose prior to delivery Pt positioned LLP with pnut ball to encourage passive descent Anticipate , Dr. Mckeon inhouse Subjective Interval history since last seen: Pt states she is comfortable and was able to sleep for an hour since getting the epidural, unable to move either of her legs much at all, does report some pelvic pressure which is increasing, blood tinged vaginal mucous and fluids noted.
[2023-11-03] MEDS: ceFAZolin 1,000 MG VIAL 2000 MG IVPB (20:40)
--- NOTE | 2023-11-03 21:43 | W.OBDELIVERY ---
Date of service: 11/03/23 Time of Service: 21:43 OB Labor/ Delivery Information Baby A Delivery Delivery Method: Spontaneaous Presentation: Cephalic Cephalic Position: Vertex Vertex Position: Right Occipital Anterior Breech Position: N/A Cord Description-Baby A: 3 Vessels Amniotic Fluid: Clear Estimated Blood Loss: 200 Delivery Outcome: Liveborn Infant Transferred: Remains with Mother Note: Pt rested in LLP for passive descent x1 hour, found to be fully and +3 station, straight cath for 200 ml clear yellow urine and pt coached for effective pushing, 2nd stage huddle completed. after short period of excellent maternal efforts a vigorous male over intact perineum, head was OA and shoulders delivered with ease in transverse position, baby immediately to mother's arms. Cord ceased pulsating and was clamped then cut by FOB, cord blood collected, pitocin bolus was begun and placenta delivered [place] intact with 3VC. Minimal rubra noted, no lacerations of vulva or vagina upon inspection, fundus firm below umbilicus. Strong bonding noted, apgars 9/9, weight 2735 gms. Providers Nurse Gummed Tape Press Operator: Swati Roblero Clinical Associate: Heidi Noonan Nurse: Emmy Tpoete Nurse: Mattie Carrillo Labor/Delivery Information Number of Babies in Womb: 1 Steroids Given: None Group Beta Strep: Done-Result Unknown Antibiotics Administered: Yes Number of Doses of Antibiotics: 9 Rubella Status: Immune Blood Type: A- Varicella Immunity: Immune Medication in Delivery: pitocin IV Maternal Complications: Premature Rupture of Membranes and Other (prolonged PPROM >40 hrs) Shoulder Dystocia: No Stages of Labor Onset of Labor Date: 11/02/23 Onset of Labor Time: 05:00 Complete Dilatation Date: 11/03/23 Complete Dilatation Time: 21:00 Labor - Stage 1 Duration: 40 hours and 0 minutes ROM Baby A: 11/02/23 ROM Baby A: 05:00 Infant Delivery Date-Baby A: 11/03/23 Infant Delivery Time-Baby A: 21:22 Labor Stage 2 Duration: 22 minutes Placenta Delivery Date-Baby A: 11/04/23 Total Length of Labor-Baby A: 40 hours and 22 minutes Placenta Cultured: No Placenta Status: Delivered Baby A Gender: Male Gestational Status: Late (34-36.6 wks) weight: 6 lb 0.474 oz Weight Comment: 2735 gms Score-1 Minute Interval(Baby A) Heart Rate-1 minute: 100 BPM or Greater Respiratory Effort- 1 minute: Slow Respiration/Weak Cry Muscle Tone-1 minute: Active Movement Reflex Response-1 minute: Prompt Response Color-1 minute: [place]/No Cyanosis Score-5 Minute Interval(Baby A) Heart Rate- 5 minute: 100 BPM or Greater Respiratory Effort-5 minute: Spontaneous/Strong Cry Muscle Tone-5 minute: Active Movement Reflex Response-5 minute: Prompt Response Color-5 minute: Bluish Hands or Feet
[2023-11-03] MEDS: Dibucaine 1% 28 GM TUBE TP (22:48)
[2023-11-03] MEDS: Hamamelis Leaf/Glycerin 100 EACH BOX PR (22:48)
[2023-11-03] MEDS: diphenhydrAMINE 50 MG/ML VIAL 25 MG IVP (22:49)
[2023-11-04 02:16] VITALS: BP 129/89; PULSE 90; RESP 16; TEMP 37.1; O2SAT 95
[2023-11-04] MEDS: Acetaminophen 325 MG TAB 650 MG PO ×3 (07:18→22:33)
--- NOTE | 2023-11-04 10:58 | W.PM.OBPNV1 ---
Date of service: 11/04/23 Time of Service: 10:58 Assessment and Plan Assessment and plan (1) delivery after induction of labor: Status: Acute Assessment and plan: A: PPD#1 support being provided Satisfied with experience P: Pt planning POP's for BCM Plan discharge on day 2 or 3 pending feeding Routine PP care (2) Prolonged premature rupture of membranes: Status: Acute Subjective Subjective Patient comments: No complaints, Pain well controlled, Tolerating diet and Flatus present Exam Physical Exam Vital signs: Temp Pulse Resp BP Pulse Ox 98.7 F 90 16 129/89 95 11/04/23 02:16 11/04/23 02:16 11/04/23 02:16 11/04/23 02:16 11/04/23 02:16 Vital Signs Reviewed: Yes Constitutional Constitutional: no acute distress and cooperative HEENT Exam HEENT Exam: Normal Neck Exam Neck Exam: Normal Breast Exam Bilateral: Breast Exam: Normal and Soft Nipple Exam: Normal and Uninjured Respiratory Exam Respiratory Exam: Normal Cardiovascular Exam Cardiovascular Exam: Normal Abdominal Exam Abdomen: Other (soft, nontender) Fundal Exam Fundus: Below Umbilicus and Firm Rectal Exam Rectal Exam: Normal Exam Patient deferred: external exam Perineum: Intact Extremities Exam Extremity Exam: Normal, Full ROM and Warm to Touch Back/Spine/Pelvis Exam Back Exam: Normal Skin Exam Skin Exam: Normal Neurological Exam Neurological Exam: Normal Psychiatric Exam Psychiatric Exam: Normal Results Abnormal Lab Findings: GBS culture final result returned today and is positive. Adequate prophylaxis was given during induction and labor.
[2023-11-04 12:30] VITALS: BP 128/69; PULSE 82; RESP 16; TEMP 36.8
[2023-11-04 20:05] VITALS: BP 120/74; PULSE 73; RESP 18; TEMP 36.7
[2023-11-04] MEDS: Ibuprofen 600 MG TAB PO (22:33)
[2023-11-05 02:00] VITALS: BP 129/91; PULSE 76; RESP 18
[2023-11-05] MEDS: Ibuprofen 600 MG TAB PO ×2 (07:40→19:35)
[2023-11-05] MEDS: Acetaminophen 325 MG TAB 650 MG PO ×2 (07:40→19:35)
[2023-11-05 07:52] VITALS: BP 136/95; PULSE 72; RESP 18; TEMP 36.4; O2SAT 98
[2023-11-05 08:37] LABS: MCH 28.5 pg (27.0-33.0); MCHC 31.6 % (32.0-36.0); MCV 90 fL (80-95); MPV 9.9 fL (8.0-11.0); Platelet Count 277 10^3/uL (130-400); RBC 4.21 10^6/uL (3.93-5.22); RDW 13.7 % (11.7-14.6); RDW-SD 44.9 fL; WBC 9.07 10^3/uL (4.4-10.8)
[2023-11-05 09:09] LABS: ALT 17 U/L (14-59); AST 17 U/L (15-37); Albumin 2.1 g/dL (3.4-5.0); Alkaline Phosphatase 116 U/L (46-116); Anion Gap 8.1 mmol/L (3-11); BUN 15 mg/dL (7-18); Bilirubin, Total 0.2 mg/dL (0.2-1.0); CO2 24.9 mmol/L (21.0-32.0); CREATININE 0.9 mg/dL (0.55-1.02); Calcium 8.7 mg/dL (8.5-10.1); Chloride 104 mmol/L (98-107); Glucose 126 mg/dL (74-106); Potassium 3.8 mmol/L (3.5-5.1); Sodium 137 mmol/L (136-145); Total Protein 6.4 g/dL (6.4-8.2)
--- NOTE | 2023-11-05 10:15 | W.ANESPOSTOP ---
Postoperative Evaluation Date, Time and Location Date Performed: 11/05/23 Time Performed: 08:25 Patient Location: Obstetrics (301) Vital Signs Most Recent Imported Vital Signs: Most Recent Vital Signs Temp Pulse Resp BP Pulse Ox 36.4 C L 72 18 136/95 H 98 11/05/23 07:52 11/05/23 07:52 11/05/23 07:52 11/05/23 07:52 11/05/23 07:52 Pain Score Most Recent Pain Score: Most Recent Pain Score Pain Level [Lower Back] 2 11/05/23 07:52 Pain Level 5 11/04/23 07:18 Assessment Mental Status: Awake (Alert & Oriented to Patient Baseline) Airway and Respiratory Function: Patent airway with normal (patient baseline) respiratory exam Cardiovascular Function: Hemodynamically Stable (BPs have been elevated per OB staff and are being cared for under their supervision) Hydration Status: Adequately Hydrated Nausea & Vomiting: No Nausea or Vomiting Pain: Pain is tolerable per patient Peripheral Nerve Block: Other (Epidural appropriately resolved, denies any motor or sensory compromise, denied headache, denied backpain. Per RN catheter removed with tip intact.)
--- NOTE | 2023-11-05 11:00 | W.PM.OBPNV1 ---
Date of service: 11/05/23 Time of Service: 11:00 Assessment and Plan Assessment and plan (1) delivery after induction of labor: Status: Acute Assessment and plan: A: PPD#2, nml recovery Intermittent borderline BP with diastolic 90's Repeat CBC & CMP today are nml P: Pt planning POP's for BCM Plan discharge tomorrow Routine PP care and feeding support Plan 1 wk BP check in addition to 2 & 6 wk visits [place] circ today (2) Prolonged premature rupture of membranes: Status: Acute Subjective Subjective Patient comments: No complaints, Pain well controlled, Tolerating diet and Bowel Movement Patient's Mood: happy [place] baby status: Doing well, Nursing well, Supplemental feeding going well, Rooming in and Strong Bonding Observed feeding status: Breast and formula feeding Exam Physical Exam Vital signs: Temp Pulse Resp BP Pulse Ox 97.5 F L 72 18 136/95 H 98 11/05/23 07:52 11/05/23 07:52 11/05/23 07:52 11/05/23 07:52 11/05/23 07:52 Vital Signs Reviewed: Yes Constitutional Constitutional: no acute distress and cooperative HEENT Exam HEENT Exam: Normal Neck Exam Neck Exam: Normal Breast Exam Bilateral: Breast Exam: Normal and Soft Respiratory Exam Respiratory Exam: Normal Cardiovascular Exam Cardiovascular Exam: Normal Abdominal Exam Abdomen: Other (soft, nontender) Fundal Exam Fundus: Below Umbilicus and Firm Rectal Exam Rectal Exam: Normal Exam Patient deferred: external exam Perineum: Intact Extremities Exam Extremity Exam: Normal, Full ROM and Warm to Touch Back/Spine/Pelvis Exam Back Exam: Normal Skin Exam Skin Exam: Normal Neurological Exam Neurological Exam: Normal Psychiatric Exam Psychiatric Exam: Normal Additional findings Additional findings: deferred Results Hemoglobin/Hematocrit: Hgb 12.0 g/dL (11.2-15.7) 11/05/23 08:19 Hct 38.0 % (36.0-46.0) 11/05/23 08:19 Abnormal Lab Findings: Abnormal Labs 11/02/23 11/05/23 07:34 08:19 MCHC 31.6 L Glucose 126 H Uric Acid 6.2 H Alkaline Phosphatase 150 H Albumin 2.4 L 2.1 L 11/02/23 07:15 Vaginal/Rectal Group B Streptococcus Culture - Final Hemorrrhage Note IV Site Left Hand: IV Catheter Gauge: 20
[2023-11-05 12:15] VITALS: BP 138/94; PULSE 70; RESP 16; TEMP 36.3; O2SAT 99
[2023-11-05] MEDS: Omeprazole 20 MG CAPCR PO (12:24)
[2023-11-05 15:50] VITALS: BP 146/94; PULSE 87; RESP 16; TEMP 36.7; O2SAT 98
[2023-11-05] MEDS: Labetalol 100 MG TAB (16:42)
[2023-11-05 19:43] VITALS: BP 139/90; PULSE 87; RESP 16; TEMP 36.4; O2SAT 98
[2023-11-06] MEDS: Ibuprofen 600 MG TAB PO ×3 (06:35→19:47)
[2023-11-06] MEDS: Acetaminophen 325 MG TAB 650 MG PO ×3 (06:36→19:46)
[2023-11-06 07:00] VITALS: BP 131/86; PULSE 75; RESP 18; TEMP 36.4; O2SAT 100
[2023-11-06] MEDS: Labetalol 100 MG TAB PO ×2 (08:16→19:47)
--- NOTE | 2023-11-06 09:45 | OBPPV_ITS ---
Date of service: 11/06/23 Time of Service: 09:45 Assessment and Plan Assessment and plan (1) care following vaginal delivery: Status: Acute Assessment and plan: 1. PP course stable, added Labetalol 100 mg twice daily to her medications yesterday evening. Pre-eclampsia labs negative 2. Will monitor BP today and consider discharge if stable. 3. Plan short interval follow up in office. JORGE (2) Gestational hypertension: Status: Acute Assessment and plan: 1. Taking Labetalol 100 mg twice daily, will reassess BP 2 hours after dose and if lower will continue this dose. JORGE Subjective Subjective Interval history: Feeling well. Is breast and bottle feeding formula and is feeling good about having a feeding plan. Denies OLSON, visual disturbance or epigastric pain. JORGE Patient's Mood: good [place] baby status: Doing well, Nursing well, Supplemental feeding going well and Rooming in Exam Physical Exam Vital signs: Temp Pulse Resp BP Pulse Ox 97.6 F 75 18 131/86 100 11/06/23 07:00 11/06/23 07:00 11/06/23 07:00 11/06/23 07:00 11/06/23 07:00 Vital Signs Reviewed: Yes Narrative: BP 141/90 prior to am dose of Labetalol. Will see if BP decreases and if so will discharge on this dose with short interval follow up in office for BP check per consult with Dr. Cuevas. JORGE Constitutional Constitutional: no acute distress and obese HEENT Exam HEENT Exam: Normal Neck Exam Neck Exam: Normal Respiratory Exam Respiratory Exam: Normal Cardiovascular Exam Cardiovascular Exam: Normal (BP controlled by Labetalol 100 mg twice daily) Abdominal Exam Comments: normal Fundal Exam Fundus: Below Umbilicus and Firm Rectal Exam Rectal Exam: Not Done Exam Patient deferred: external exam and perineal exam Extremities Exam Extremity Exam: Edema (bilaterally to knees 1-2+), Pulses Intact, Normal Capillary Refill and Warm to Touch Back/Spine/Pelvis Exam Back Exam: Not Done Skin Exam Skin Exam: Normal Neurological Exam Neurological Exam: Normal Psychiatric Exam Psychiatric Exam: Normal Results Hemoglobin/Hematocrit: Hgb 12.0 g/dL (11.2-15.7) 11/05/23 08:19 Hct 38.0 % (36.0-46.0) 11/05/23 08:19 Abnormal Lab Findings: Abnormal Labs 11/02/23 11/05/23 07:34 08:19 MCHC 31.6 L Glucose 126 H Uric Acid 6.2 H Alkaline Phosphatase 150 H Albumin 2.4 L 2.1 L 11/02/23 07:15 Vaginal/Rectal Group B Streptococcus Culture - Final
[2023-11-06 10:13] VITALS: BP 130/82
--- NOTE | 2023-11-06 11:26 | W.PM.OBDISCH ---
Date of service: 11/06/23 Time of Service: 11:26 DS: Diagnosis Discharge Diagnosis (1) care following vaginal delivery: Status: Acute Asessment and Plan: 1. PP HTN without signs of pre-eclampsia. Stable on Labetalol 100 mg twice daily. 2. Otherwise normal PP course and recovery. 3. Breast and formula feeding. 4. Will return to [facility] for follow up in <1 week for BP check.KH (2) Gestational hypertension: Status: Acute Asessment and Plan: 1. continue current plan with follow up < 1 week in office. K[facility] Discharge Plan Disposition Patient Disposition: Home Condition: Good Discharge Details Reason For Visit: labor with rupturd membranes Admit Date/Time: 11/02/23 07:17 Admit Provider: Arminda Forbes Attending Provider: Arminda Forbes Primary Care Provider: Ophelia Doyle Hospital Course Hospital Course: Admitted for PPROM, induction done successfully for on HD#2, mild gHTN noted , discharge on PP day 3. Home Meds and New Rx's Prescriptions: New ibuprofen 600 mg Tablet 600 mg PO Q6H PRN PRNQty: 90 0RF Continued Allergy Relief (cetirizine) 10 mg capsule 20 mg PO DAILY PRN PNV cmb#95-ferrous fumarate-FA 28 mg iron- 800 mcg tablet 1 tab PO DAILY epinephrine 0.3 mg/0.3 mL auto-injector 0.3 mg IM ONCE Qty: 2 3RF Rx Instructions: as a single dose; may repeat once albuterol sulfate 8.5 GM HFA aerosol inhaler 2 puff Inhalation Q4H PRN Qty: 1 No Action labetalol 100 mg tablet 100 mg PO BID Qty: 60 0RF Discharge Instructions Instructions: Labetalol (By mouth), Depression (GEN) Stand Alone Forms: BC Instructions, BC Post Vaginal Deliver Activity:: Activity as Tolerated Equipment/Supplies:: No Equipment Needed Diet:: As Tolerated Discharge Orders Discharge Orders: Discharge Order (Routine); Ordered 11/06/23 Ordered By: Arminda Quinteros OB:DS Summary Summary Vaginal Delivery Method: Spontaneaous Episiotomy Description: None Laceration Description: None Laceration Extension: N/A Contraception Discussed Contraception Discussed: Yes (progesterone only pill at 4-6 weeks PP), [place] Infant Gender-Baby A: Male weight: 6 lb 0.474 oz Status at Discharge Functional status at discharge: independent ambulation Overall status at discharge: patient is back to baseline Mental Status: mental status grossly normal Speech and Movement: speech and movement normal Mood: congruent mood Affect: normal affect Time Spent with Patient providing and/or coordinating discharge services: Less than 30 minutes Quality:SDOH Health Related Social Needs: No Data to Display Exam Physical Exam Vital signs: Temp Pulse Resp BP Pulse Ox 97.6 F 75 18 130/82 100 11/06/23 07:00 11/06/23 07:00 11/06/23 07:00 11/06/23 10:13 11/06/23 07:00 Vital Signs Reviewed: Yes Constitutional Constitutional: no acute distress, obese and cooperative HEENT Exam HEENT Exam: Normal Neck Exam Neck Exam: Normal (normal visual inspection) Respiratory Exam Respiratory Exam: Normal Cardiovascular Exam Cardiovascular Exam: Normal Abdominal Exam Abdomen: Other (normal exam) Fundal Exam Fundus: Below Umbilicus and Firm Comment: small lochia noted. KH Rectal Exam Rectal Exam: Not Done Exam Perineum: Intact and Normal Extremities Exam Extremity Exam: Normal (denies calf tenderness) and Full ROM Back/Spine/Pelvis Exam Back Exam: Normal Skin Exam Skin Exam: Normal Neurological Exam Neurological Exam: Normal Psychiatric Exam Psychiatric Exam: Normal PFSH All Active Problems care following vaginal delivery (Acute) Gestational hypertension (Acute) delivery after induction of labor (Acute) Prolonged premature rupture of membranes (Acute) Rh negative state in antepartum period (Acute) History of asthma (Acute) Class 1 obesity with body mass index (BMI) of 33.0 to 33.9 in adult (Acute) Hx of migraines (Acute) Medical History Encounter for induction of labor premature rupture of membranes, antepartum labor Fundal height high for dates Encounter for supervision of normal first , first trimester Labial lesion Missed menses Allergy to dairy product GI upset History of COVID-19 03/19 Concussion (11/18/13) Routine medical exam (02/26/14) Infectious mononucleosis (05/02/12) 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 Other Diabetes family history Heart disease family history Father Heart disease Hypertension Hypertensive disorder, systemic arterial Paternal Aunt No problems noted. Paternal Grandfather Heart disease Hypertension Hypertensive disorder, systemic arterial Hearing loss Maternal Grandfather No problems noted. Maternal Grandmother Personal history of malignant neoplasm Paternal Grandmother Personal history of malignant neoplasm Social History Smoking/Tobacco Use Status: Never Smoking risk assessment performed?: Yes Alcohol Intake: current Alcohol Intake frequency: a few times a month Drug use: Never Substance use type: does not use Household members: family and other Details: moved in with parents 1 yr ago after relationship ended Housing: house Education Level: high school current occupation: [employer]. Sexually active: No Do you feel safe at home: Yes Do you feel safe in your relationship?: Yes History History 1 Para 0 Hx # Term Pregnancies 0 Multiple births 0 Hx # Pregnancies 0 Ectopic pregnancies 0 AB induced 0 Hx Number of Living Children 0 AB spontaneous 0 DS: Data Vitals/I&O Vitals and I&O: Vital Signs Temperature 97.6 F 11/06/23 07:00 Temperature 98.3 F 11/02/23 20:50 Temperature Source Oral 11/02/23 19:06 Temperature Source Tympanic 11/06/23 07:00 Pulse 75 11/06/23 07:00 Pulse 75 11/02/23 20:50 Pulse Rhythm Regular 11/06/23 07:00 Respiratory Rate 18 11/06/23 07:00 Respiratory Depth Normal 11/05/23 19:43 Blood Pressure 130/82 11/06/23 10:13 Blood Pressure 122/84 11/02/23 20:50 Blood Pressure Mean 98 11/06/23 10:13 Pulse Oximetry 100 11/06/23 07:00 Oxygen Delivery Method Room Air 11/02/23 19:06 Oxygen Flow Rate 0 11/02/23 19:06 Pain Level 3 11/06/23 06:36 Intake & Output 11/05/23 11/05/23 11/06/23 11:59 23:59 11:59 Other: Urine Color Yellow
[2023-11-06 12:00] VITALS: BP 115/72; PULSE 81; RESP 18; TEMP 36.6; O2SAT 99
== END 2023-11-06 20:21 | disposition home or self-care (01) | DRG 806 ==
LOC: BCD 11:20 → OBS 11:21
PROVIDERS: Advanced Practice Midwife; Admitting Provider Advanced Practice Midwife; PCP Nurse Practitioner Family; Visit Provider Advanced Practice Midwife
DX: O42.013 Preterm premature rupture of membranes, onset of labor within 24 hours of rupture, third trimester; O36.0930 Maternal care for other rhesus isoimmunization, third trimester, not applicable or unspecified; Z37.0 Single live birth; O99.354 Diseases of the nervous system complicating childbirth; O13.4 Gestational [pregnancy-induced] hypertension without significant proteinuria, complicating childbirth; Z3A.36 36 weeks gestation of pregnancy; O99.214 Obesity complicating childbirth; E66.9 Obesity, unspecified; O99.52 Diseases of the respiratory system complicating childbirth; G43.909 Migraine, unspecified, not intractable, without status migrainosus; J45.909 Unspecified asthma, uncomplicated
CPT/HCPCS: 36415; 80053; 84112; 85027; 86850; 86900; 86901; 82565; 84156; 84550; 87081; J0665; J0690; J1200; J2300; J2540; J3010

== ENCOUNTER 2023-11-07 07:16 | Outpatient (CLI) | payer BC, MEDICAID, SELFPAY ==
[2023-11-07 09:25] VITALS: BP 146/88; PULSE 93
[2023-11-07] MEDS: Labetalol 100 MG TAB PO (10:10)
== END 2023-11-07 10:15 | disposition home or self-care (01) ==
LOC: BCD 07:16
PROVIDERS: PCP Nurse Practitioner Family; Visit Provider Advanced Practice Midwife
DX: R03.0 Elevated blood-pressure reading, without diagnosis of hypertension (principal); O99.893 Other specified diseases and conditions complicating puerperium
CPT/HCPCS: 99211

== ENCOUNTER 2023-11-15 13:23 | Outpatient (CLI) | payer BC, MEDICAID, SELFPAY ==
[2023-11-15 13:01] LABS: HCT 41.7 % (36.0-46.0); HGB 13.2 g/dL (11.2-15.7); MCH 28.6 pg (27.0-33.0); MCHC 31.7 % (32.0-36.0); MCV 91 fL (80-95); Platelet Count 334 10^3/uL (130-400); RBC 4.61 10^6/uL (3.93-5.22); RDW 13.3 % (11.7-14.6); RDW-SD 44.6 fL; WBC 10.65 10^3/uL (4.4-10.8)
[2023-11-15 13:26] LABS: ALT 26 U/L (14-59); AST 22 U/L (15-37); Albumin 3.2 g/dL (3.4-5.0); Alkaline Phosphatase 135 U/L (46-116); Anion Gap 9.1 mmol/L (3-11); BUN 13 mg/dL (7-18); Bilirubin, Total 0.4 mg/dL (0.2-1.0); CO2 28.9 mmol/L (21.0-32.0); CREATININE 0.9 mg/dL (0.55-1.02); Calcium 9.7 mg/dL (8.5-10.1); Chloride 104 mmol/L (98-107); Glucose 80 mg/dL (74-106); Potassium 4.1 mmol/L (3.5-5.1); Sodium 142 mmol/L (136-145); Total Protein 7.4 g/dL (6.4-8.2); Uric Acid 7.2 mg/dL (2.6-6.0)
== END 2023-11-15 13:24 | disposition home or self-care (01) ==
LOC: LBO 13:24
PROVIDERS: PCP Nurse Practitioner Family; Visit Provider Advanced Practice Midwife
DX: Z39.2 Encounter for routine postpartum follow-up
CPT/HCPCS: 36415; 80053; 85027; 84550

== ENCOUNTER 2023-12-14 02:09 | Outpatient (CLI) | payer BC, MEDICAID, SELFPAY ==
[2023-12-14 14:26] LABS: HGB 12.6 g/dL (11.2-15.7); MCH 27.9 pg (27.0-33.0); MCHC 31.5 % (32.0-36.0); MCV 89 fL (80-95); MPV 9.4 fL (8.0-11.0); Platelet Count 304 10^3/uL (130-400); RBC 4.52 10^6/uL (3.93-5.22); RDW 13.1 % (11.7-14.6); RDW-SD 42.3 fL; WBC 9.27 10^3/uL (4.4-10.8)
[2023-12-14 16:04] LABS: ALT 33 U/L (14-59); AST 22 U/L (15-37); Albumin 3.6 g/dL (3.4-5.0); Alkaline Phosphatase 132 U/L (46-116); Anion Gap 8.9 mmol/L (3-11); BUN 16 mg/dL (7-18); Bilirubin, Total 0.3 mg/dL (0.2-1.0); CO2 27.1 mmol/L (21.0-32.0); Calcium 9.3 mg/dL (8.5-10.1); Chloride 106 mmol/L (98-107); Glucose 79 mg/dL (74-106); Potassium 4.4 mmol/L (3.5-5.1); Sodium 142 mmol/L (136-145); Total Protein 7.3 g/dL (6.4-8.2); Uric Acid 6.2 mg/dL (2.6-6.0)
== END 2023-12-14 02:10 | disposition home or self-care (01) ==
LOC: LBO 02:09
PROVIDERS: PCP Nurse Practitioner Family; Visit Provider Advanced Practice Midwife
DX: Z39.2 Encounter for routine postpartum follow-up (principal)
CPT/HCPCS: 36415; 80053; 85027; 84550

== ENCOUNTER 2023-12-19 13:39 | Outpatient (REF) | payer BC, MEDICAID, SELFPAY ==
[2023-12-19 21:23] LABS: TSH (W/Ref FT4) 2.68 uIU/mL (0.36-3.74)
== END 2023-12-19 13:40 | disposition home or self-care (01) ==
LOC: NCHCN 13:39
PROVIDERS: PCP Nurse Practitioner Family; Referring Provider Nurse Practitioner Family; Visit Provider Nurse Practitioner Family
DX: F53.0 Postpartum depression (principal); Z86.39 Personal history of other endocrine, nutritional and metabolic disease
CPT/HCPCS: 84443

== ENCOUNTER 2024-02-02 14:13 | Emergency (ER) | payer BC, MEDICAID, SELFPAY ==
[2024-02-02 14:18] VITALS: BP 157/104; PULSE 67; RESP 14; TEMP 36.7; O2SAT 97
--- NOTE | 2024-02-02 14:30 | DI.RAD_ITS ---
Exam(s) XR LUMBAR SPINE COMPLETE EXAM: XR LUMBAR SPINE COMPLETE CLINICAL HISTORY: Low back pain. TECHNIQUE: 2D digital imaging was performed. COMPARISON: No exams were available for comparison FINDINGS: Five views. There is no evidence of fracture, listhesis, nor pars interarticularis defects. There is mild disc s pace narrowing at L1-2 and L5-S1 levels. No scoliosis. Bone density normal. No osseous lesions. Sacroiliac joints appear unremarkable. IMPRESSION: Mild disc space narrowing as above. DATA REPOSITORY: RADIATION DOSE DELIVERED:
--- NOTE | 2024-02-02 14:40 | W.ED.GENAD ---
Discharge Plan Disposition Patient Disposition: Home Condition: Stable Discharge Details Clinical Impression: Lumbar back sprain Primary Care Provider: Ophelia Doyle ED Provider: Jailene Garcia Home Meds and New Rx's Prescriptions: New cyclobenzaprine 10 mg tablet 10 mg PO TID PRN (Reason: muscle spasm) Qty: 10 0RF Rx Instructions: Take 1 tablet orally up to 3 times daily as needed for muscle spasm. lidocaine 5 % adhesive patch,medicated 1 patch topical DAILY Qty: 15 0RF Rx Instructions: leave on most painful area for up to 12 hrs No Action Allergy Relief (cetirizine) 10 mg capsule 20 mg PO DAILY PRN PNV cmb#95-ferrous fumarate-FA 28 mg iron- 800 mcg tablet 1 tab PO DAILY norgestimate-ethinyl estradiol [Sprintec (28)] 0.25-35 mg-mcg tablet 1 tab PO DAILY Qty: 84 4RF epinephrine 0.3 mg/0.3 mL auto-injector 0.3 mg IM ONCE Qty: 2 3RF Rx Instructions: as a single dose; may repeat once albuterol sulfate 8.5 GM HFA aerosol inhaler 2 puff Inhalation Q4H PRN Qty: 1 Discharge Instructions Instructions: Low Back Strain (ED), Lower Back Exercises (ED) Additional Instructions: Alternate ice and heat. Please take Tylenol or Ibuprofen with food every 4-6 hours as needed for pain and swelling. Use the Flexeril as directed and lidocaine patches once daily. Turn to the ER for any loss of bowel or bladder control, weakness or unable to move your legs. Follow up with primary care provider in 3-5 days. Return to ED sooner if any worsening or concerns. Stand Alone Forms: Work Release Referrals: Ophelia Doyle [Primary Care Provider] - 3 days Discharge Data Discharge Date/Time-TO BE ENTERED AT DEPARTURE: 02/02/24 15:50 HPI General Mode of arrival: EMS. Date/Time Provider Initiated Documentation: 02/02/24 14:36. Limitations to Documentation: no limitations. Information obtained by: patient, RN notes reviewed and old records reviewed. HPI Narrative: 28-year-old female presents to the ER with a chief complaint of lower back pain which began this morning around 5 AM after sneezing. Patient denies any history of back surgeries, no radiation of pain no weakness numbness or tingling no loss of bowel or bladder control. She was given a gram of Tylenol IV by EMS prior to arrival. No focal neurodeficits noted on exam. Related Data Home Medications Medication Instructions Recorded Confirmed albuterol sulfate 90 mcg/actuation 2 puff inhalation Q4H PRN ##1 06/11/15 02/02/24 aerosol inhaler cetirizine 10 mg capsule (Allergy 20 mg PO DAILY PRN 03/14/22 02/02/24 Relief (cetirizine)) vit no.95-ferrous 1 tab PO DAILY 04/30/23 02/02/24 fumarate 28 mg-folic acid 800 mcg tablet epinephrine 0.3 mg/0.3 mL 0.3 mg (0.3 mL) IM ONCE #2 ea 10/08/23 02/02/24 injection, auto-injector norgestimate 0.25 mg-ethinyl 1 tab PO DAILY #84 tabs 12/14/23 02/02/24 estradiol 35 mcg tablet (Sprintec (28)) cyclobenzaprine 10 mg tablet 10 mg PO TID PRN muscle spasm #10 02/02/24 tabs lidocaine 5 % topical patch 1 patch topical DAILY #15 ea 02/02/24 Previous Rx's Medication Instructions Recorded epinephrine 0.3 mg/0.3 mL 0.3 mg (0.3 mL) IM ONCE #2 ea 10/08/23 injection, auto-injector norgestimate 0.25 mg-ethinyl 1 tab PO DAILY #84 tabs 12/14/23 estradiol 35 mcg tablet (Sprintec (28)) cyclobenzaprine 10 mg tablet 10 mg PO TID PRN muscle spasm #10 02/02/24 tabs lidocaine 5 % topical patch 1 patch topical DAILY #15 ea 02/02/24 Allergies Allergy/AdvReac Type Severity Reaction Status Date / Time tree nut [Tree Nut] Allergy Intermediate tongue Verified 02/02/24 14:23 throat itching dairy Allergy Other (See Uncoded 02/02/24 14:23 Comment) General Stated Complaint: Nk/Back Pain RILEY: 3 Review of Systems All systems reviewed & are unremarkable except as noted in HPI and below Musculoskeletal Musculoskeletal: Reports back pain Exam Narrative Exam Narrative: Constitutional: Alert and oriented x3. Appears stated age. Normal body habitus. Head: Normocephalic, no trauma. Eyes: Pupils PERRL, Red reflex noted, EOM's intact. Eyelids symmetrical without lesions, discharge, or swelling. ENT: Bilateral TM's WNL, External ear normal to inspection, no mastoid TTP, swelling, or erythema, Nasal turbinates WNL, no nasal discharge. Normal dentition, Posterior pharynx WNL, no exudate. Chest: RRR, Normal S1, S2, distal pulses intact. Resp: Lungs clear to auscultation bilaterally, no wheezes, rales, or rhonchi. Abdomen: Soft, non-distended, Normoactive bowel sounds all 4 quads. Musculoskeletal: Unable to assess gait, moves all 4 extremities without difficulty. Skin: No suspicious rashes or lesions. Capillary refill less than 2 sec. Neurologic: Cranial nerves II-XII intact. Alert and oriented x 3. Motor: No deficits noted. Sensory: Intact bilaterally all 4 extremities. Hematologic/Lymphatic: No ecchymosis, no lymphadenopathy. Course Vital Signs Vital signs: Vital Signs Temperature 36.7 C 02/02/24 14:18 Pulse 67 02/02/24 14:18 Respiratory Rate 14 02/02/24 14:18 Blood Pressure 157/104 H 02/02/24 14:18 Pulse Oximetry 97 02/02/24 14:18 Temperature 36.7 C 02/02/24 14:18 Temperature Source Skin 02/02/24 14:18 Pulse 67 02/02/24 14:18 Respiratory Rate 14 02/02/24 14:18 Respiratory Effort Normal, Non-Labored 02/02/24 14:24 Blood Pressure 157/104 H 02/02/24 14:18 Blood Pressure Position Supine 02/02/24 14:18 Pulse Oximetry 97 02/02/24 14:18 Oxygen Delivery Method Room Air 02/02/24 14:18 Oxygen Flow Rate 0 02/02/24 14:18 Pain Level 5 02/02/24 14:18 Medical Decision Making 28-year-old female presents to the ER with a chief complaint of lower back pain which began this morning around 5 AM after sneezing. Patient denies any history of back surgeries, no radiation of pain no weakness numbness or tingling no loss of bowel or bladder control. She was given a gram of Tylenol IV by EMS prior to arrival. No focal neurodeficits noted on exam. L-spine x-ray ordered, urinalysis urine , Flexeril lidocaine patch and ibuprofen p.o. Urinalysis negative for any UTI. Urine negative. Lumbar spine x-ray appears within normal limits. Will give Flexeril and lidocaine patches and discharge patient to home with follow-up with primary care provider will instruct on alternating ice and heat. This text was generated using [employer] system, please disregard any oddities of phrase or misspellings. Imaging Data Radiologic Study: Imaging: X-Ray Radiologist's impression: Exam(s) XR LUMBAR SPINE COMPLETE EXAM: XR LUMBAR SPINE COMPLETE CLINICAL HISTORY: Low back pain. TECHNIQUE: 2D digital imaging was performed. COMPARISON: No exams were available for comparison FINDINGS: Five views. There is no evidence of fracture, listhesis, nor pars interarticularis defects. There is mild disc space narrowing at L1-2 and L5-S1 levels. No scoliosis. Bone density normal. No osseous lesions. Sacroiliac joints appear unremarkable. IMPRESSION: Mild disc space narrowing as above. Quality:SDOH Health Related Social Needs: No Data to Display PFSH All Active Problems (Updated 02/02/24 @ 15:20 by Jailene Garcia NP) Lumbar back sprain (Acute) care following vaginal delivery (Acute) Gestational hypertension (Acute) Rh negative state in antepartum period (Acute) History of asthma (Acute) Class 1 obesity with body mass index (BMI) of 33.0 to 33.9 in adult (Acute) Hx of migraines (Acute) Medical History delivery after induction of labor Prolonged premature rupture of membranes Encounter for induction of labor premature rupture of membranes, antepartum labor Fundal height high for dates Encounter for supervision of normal first , first trimester Labial lesion Missed menses Allergy to dairy product GI upset History of COVID-19 03/19 Concussion (11/18/13) Routine medical exam (02/26/14) Infectious mononucleosis (05/02/12) 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 Other Diabetes family history Heart disease family history Father Heart disease Hypertension Hypertensive disorder, systemic arterial Paternal Aunt No problems noted. Paternal Grandfather Heart disease Hypertension Hypertensive disorder, systemic arterial Hearing loss Maternal Grandfather No problems noted. Maternal Grandmother Personal history of malignant neoplasm Paternal Grandmother Personal history of malignant neoplasm Social History Smoking/Tobacco Use Status: Never Smoking risk assessment performed?: Yes Alcohol Intake: current Alcohol Intake frequency: a few times a month Alcohol type: beer Drug use: Never Substance use type: does not use Household members: family and other Details: moved in with parents 1 yr ago after relationship ended Housing: house Education Level: high school current occupation: [employer]. Sexually active: No Do you feel safe at home: Yes Do you feel safe in your relationship?: Yes History History 1 Para 1 Hx # Term Pregnancies 0 Multiple births 0 Hx # Pregnancies 1 Ectopic pregnancies 0 AB induced 0 Hx Number of Living Children 1 AB spontaneous 0 Past Pregnancies Del. Date GA/Weeks # Preg Succ Route Wgt Sex Labor Lgth Anesthesia Location [facility] 11/03/23 36 No Yes vaginal 2722.688 g Male 40hrs 22min ANA Macario Delivery Date: 11/03/23 Last Updated by: Elvie Galvez LPN PROM and prolonged labor PAWSS Have you Been Recently Intoxicated or Drunk Within the Last 30 days?: No Have you Ever Experienced Previous Episodes of Alcohol Withdrawal?: No Have you ever Experienced Withdrawal Seizures?: No Have you ever Experienced Delirium Tremens(DT)s?: No Have you ever undergone Alcohol Rehabilitation Treatment (i.e, inpt ot outpatient treatment programs)?: No Have you ever Experienced Blackouts?: No Have you ever Combined Alcohol with other Downers within the last 90 days?: No Have you ever Combined Alcohol with any other Substance of Abuse during the last 90 days?: No Positive Blood Alcohol level on Presentation? [PCS.BAL]: No Evidence of Increased Autonomic Activity (i.e. HR>120, tremor, sweating, agitation, nausea)?: No Result: 0
[2024-02-02] MEDS: Lidocaine 5% Patch 1 PATCH TP (14:54)
[2024-02-02] MEDS: Cyclobenzaprine 10 MG TAB PO (14:54)
[2024-02-02] MEDS: Ibuprofen 600 MG TAB PO (14:54)
[2024-02-02 15:05] LABS: Bilirubin Negative (Negative); Blood Negative (Negative); Clarity Clear (Clear); Glucose Negative (Negative); Ketones Negative (Negative); Leukocyte Esterase Negative (Negative); Nitrite Negative (Negative); Urobilinogen 0.2 mg/dL (Up to 0.2)
[2024-02-02 15:50] VITALS: BP 136/88; PULSE 75; RESP 14; O2SAT 98
--- NOTE | 2024-02-02 15:57 | DI.VRAD_ITS ---
PROCEDURE INFORMATION: Exam: XR Lumbosacral Spine Exam date and time: 02/02/2024 3:12 PM Age: 28 years old Clinical indication: Low back pain TECHNIQUE: Imaging protocol: Radiologic exam of the lumbosacral spine. Views: 4 or 5 views. COMPARISON: No relevant prior studies available. FINDINGS: Bones/joints: No acute fracture. Normal alignment. Disc degenerative change with mild loss of disc height at L5-S1. There is facet hypertrophic changes at L5-S1. Soft tissues: Unremarkable. IMPRESSION: 1. No acute findings. 2. Mild degenerative changes at L5-S1. Dictated and Authenticated by: Dixon Miramontes MD. Ordering:DANY Dent MD
== END 2024-02-02 15:50 | disposition home or self-care (01) ==
PROVIDERS: Emergency Provider Registered Nurse Emergency; PCP Nurse Practitioner Family
DX: S33.5XXA Sprain of ligaments of lumbar spine, initial encounter (principal); X50.9XXA Other and unspecified overexertion or strenuous movements or postures, initial encounter; Y93.89 Activity, other specified
CPT/HCPCS: 81025; 99284; 72110; 81003; 99283

== ENCOUNTER → 2024-02-15 01:39 | Outpatient (CLI) | payer BC, MEDICAID, SELFPAY ==
--- NOTE | 2024-02-15 07:50 | DI.RAD_ITS ---
Exam(s) XR WRIST RT COMPLETE EXAM: XR WRIST RT COMPLETE CLINICAL HISTORY: RADIAL STYLOID TENOSYNOVITIS,M65.4. TECHNIQUE: 2D digital imaging was performed. Three views. COMPARISON: No exams were available for comparison FINDINGS: BONES: No acute fracture is present. No bony destructive lesion is seen. JOINTS: The carpal bones are normally aligned. SOFT TISSUE: Normal. IMPRESSION: Unremarkable radiographs of the right wrist. DATA REPOSITORY: RADIATION DOSE DELIVERED:
== END ==
PROVIDERS: PCP Nurse Practitioner Family; Visit Provider Nurse Practitioner Family
DX: M65.4 Radial styloid tenosynovitis [de Quervain] (principal)
CPT/HCPCS: 73110

== ENCOUNTER 2025-09-08 20:06 | Emergency (ER) | payer OTHER, SELFPAY ==
[2025-09-08 20:03] VITALS: BP 153/83; PULSE 71; RESP 18; TEMP 36.7; O2SAT 99
[2025-09-08] MEDS: Acetaminophen 500 MG TAB 1000 MG PO (20:30)
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
[2025-09-08 21:44] VITALS: BP 148/80; PULSE 72; RESP 18; O2SAT 98
== END 2025-09-08 21:45 | disposition home or self-care (01) ==
PROVIDERS: Emergency Provider Emergency Medicine; PCP Nurse Practitioner Family
DX: S00.81XA Abrasion of other part of head, initial encounter (principal); V49.9XXA Car occupant (driver) (passenger) injured in unspecified traffic accident, initial encounter
CPT/HCPCS: 99283 ×2